=== PATIENT | female | born 1975 | race Hispanic/Latino ===

== ENCOUNTER 2023-01-25 11:30 | Outpatient (CLI) | payer BC ==
[2023-01-20 13:50] LABS: BASOPHILS # (AUTO) 0.08 K/uL (0.00-0.20); BASOPHILS % (AUTO) 1.1 % (0.0-5.0); EOSINOPHILS # (AUTO) 0.05 K/uL (0.00-0.70); EOSINOPHILS % (AUTO) 0.7 % (0.0-8.0); HEMATOCRIT 43.6 % (36-48); IMMATURE GRANULOCYTE ABSOLUTE 0.03 K/uL (0-1); LYMPHOCYTES # (AUTO) 2.3 K/uL (1.0-4.8); MEAN CORPUSCULAR HEMOGLOBIN 27.9 pg (27.0-33.0); MEAN CORPUSCULAR HGB CONC 31.9 g/dL (32.0-36.0); MEAN CORPUSCULAR VOLUME 87.6 fL (79-99); MONOCYTES # (AUTO) 0.5 K/uL (0.1-1.0); MONOCYTES % (AUTO) 6.6 % (3.0-13.0); NEUTROPHILS # (AUTO) 4.5 K/uL (1.8-7.7); NEUTROPHILS % (AUTO) 60.2 % (40.0-77.0); PLATELET COUNT (AUTO) 368 K/uL (130-400); RED BLOOD CELL COUNT(AUTO) 4.98 MIL/uL (4.00-5.50); WHITE BLOOD COUNT (AUTO) 7.5 K/uL (4.8-10.8)
[2023-01-20 17:13] VITALS: BP 109/61; PULSE 70; RESP 18
[~2023-01-25] VITALS: Ht 160 cm; Wt 64.1 kg
[~2023-01-25 11:30] MED LIST: CALDOLOR 800MG+NS 250ML 250 ML IV ONE; DROS4TAB PO
[2023-01-25] MEDS ORDERED: CEFAZOLIN SODIUM 2 GM VIAL ONE (12:22)
[2023-01-25] MEDS ORDERED: LACTATED RINGERS 1000ML 1,000 ML IV ONE (12:22)
[2023-01-25 12:41] VITALS: BP 117/78; PULSE 87; RESP 16
== END 2023-01-25 13:00 | disposition home or self-care (01) ==
LOC: DAH 11:30 → UNDOADMIN 11:30 → DAHIP 11:30 → EDSTATUS 12:13 → DAH 13:00 → UNDODISIN 13:00
PROVIDERS: ATTEND Obstetrics & Gynecology
DX: D25.1 Intramural leiomyoma of uterus (principal); D25.2 Subserosal leiomyoma of uterus; N92.1 Excessive and frequent menstruation with irregular cycle; R10.2 Pelvic and perineal pain; Z53.8 Procedure and treatment not carried out for other reasons; Z83.3 Family history of diabetes mellitus; Z82.49 Family history of ischemic heart disease and other diseases of the circulatory system; Z83.42 Family history of familial hypercholesterolemia; Z80.0 Family history of malignant neoplasm of digestive organs; Z98.891 History of uterine scar from previous surgery
CPT/HCPCS: 86900 ×2; 84703; 85025; 86850 ×2; 86901 ×2; 36415 ×2; 81025; A6260; A4663; J7120; J1741; A4215; A4223; A4222; A4221; A4510; A4600; G0378; J0690